=== PATIENT | male | born 1985 | race Caucasian/White ===

== ENCOUNTER 2022-07-23 07:17 | Day surgery (SDC) | payer OTHER ==
[~2022-07-23] VITALS: Ht 177.8 cm; Wt 74.4 kg
[~2022-07-23 07:17] MED LIST: AMPICILLIN SOD/SULBACTAM SOD 3 GM in D5W MINI-BAG PLUS 100 ML IV ONE; BUPR1FIL SL; CLON-412 PO; CYCL-707 PO; GABA-282 PO; TRAZ1TAB14 PO
[2022-07-23] MEDS ORDERED: LR 1,000 ML IV SCH ×2 (07:25→10:05)
[2022-07-23] MEDS ORDERED: LIDOCAINE 2% 100MG/5ML SDV (FOR ANES.) As Ordered ONE (07:49)
[2022-07-23] MEDS ORDERED: SUGAMMADEX SODIUM 500 MG/5 ML VIAL (BRIDION) As Ordered ONE (07:49)
[2022-07-23] MEDS ORDERED: ROCURONIUM BROMIDE 50MG/5ML VIAL As Ordered ONE (07:49)
[2022-07-23] MEDS ORDERED: propofoL 200 MG/20 ML VIAL As Ordered ONE (07:49)
[2022-07-23] MEDS ORDERED: ONDANSETRON 4MG 2ML VIAL As Ordered ONE (07:53)
[2022-07-23] MEDS ORDERED: fentaNYL 100 MCG/2 ML INJECTION As Ordered ONE (07:58)
[2022-07-23] MEDS ORDERED: MIDAZOLAM INJ 2MG/2ML VIAL As Ordered ONE (07:58)
[2022-07-23] MEDS ORDERED: CHLORHEXIDINE GLUCONATE 0.12 % 15ML UDC (PERIDEX ORAL RINSE) As Ordered ONE (08:59)
[2022-07-23] MEDS ORDERED: OXYMETAZOLINE 0.05% NASAL SPRAY (AFRIN) As Ordered ONE (08:59)
[2022-07-23] MEDS ORDERED: LIDOCAINE 2% W/ EPINEPHRINE 1.7 ML DENTAL INJ As Ordered ONE ×3 (09:00→09:44)
[2022-07-23] MEDS ORDERED: BUPIVACAINE LIPOSOME/PF 1.3% 20ML VIAL (13.3MG/ML)(EXPAREL) As Ordered ONE (09:00)
[2022-07-23] MEDS ORDERED: ACETAMINOPHEN 1000MG 100ML IV BAG As Ordered ONE (09:30)
[2022-07-23] MEDS ORDERED: ONDANSETRON 4MG 2ML VIAL IV PRN (10:05)
[2022-07-23] MEDS ORDERED: fentaNYL 100 MCG/2 ML INJECTION IV PRN (10:05)
[2022-07-23] MEDS ORDERED: KETOROLAC 30 MG/ML 1ML VIAL IV ONE (10:10)
[2022-07-23 12:07] VITALS: BP 133/74
== END 2022-07-23 12:14 | disposition home or self-care (01) ==
LOC: M SDC 07:17
PROVIDERS: ATTEND Dentist
DX: K02.9 Dental caries, unspecified (principal); F19.20 Other psychoactive substance dependence, uncomplicated; Z79.891 Long term (current) use of opiate analgesic; F17.210 Nicotine dependence, cigarettes, uncomplicated
CPT/HCPCS: 88300; C9290; D7140; D7210; D9223; J1100; J2405